=== PATIENT | female | born 1950 | race Caucasian/White ===

== ENCOUNTER 2024-04-26 09:12 | Emergency (ER) | payer OTHER ==
[~2024-04-26] VITALS: Ht 170.2 cm; Wt 80.3 kg
[2024-04-26 09:19] VITALS: BP_SYST 148; PULSE 112; RESP 18; TEMP 98.3; O2SAT 98
[2024-04-26 11:42] VITALS: BP_SYST 139; PULSE 104; RESP 20; TEMP 97.8; O2SAT 95
== END 2024-04-26 11:43 | disposition home or self-care (01) ==
LOC: SED 09:12
DX: S00.03XA Contusion of scalp, initial encounter (principal); M54.2 Cervicalgia; I48.91 Unspecified atrial fibrillation; E11.9 Type 2 diabetes mellitus without complications; I10 Essential (primary) hypertension; E78.5 Hyperlipidemia, unspecified; Z79.01 Long term (current) use of anticoagulants; W18.39XA Other fall on same level, initial encounter; Y93.89 Activity, other specified; Y92.89 Other specified places as the place of occurrence of the external cause; Y99.8 Other external cause status
CPT/HCPCS: 70450-TC; 72125-TC; 99284